=== PATIENT | male | born 1960 | race Caucasian/White ===

== ENCOUNTER → 2019-09-16 | Outpatient (CLI) | payer BC ==
[~2019-09-16] MED LIST: BUPIVACAINE MPF 0.5% 10 ML VIAL for KCIC. IJ ONE; IOHEXOL 300 MG/ML 50 ML VIAL. INT ART ONE; LIDOCAINE 1% Multi-Dose 20 ML VIAL. ID ONE; methylPREDNISolone ACETATE 40 MG/ML VIAL. INT ART ONE
--- NOTE | 2019-09-16 13:13 | KCIC ---
PROCEDURE Therapeutic right hip injection using fluoroscopic guidance. HISTORY Hip pain. TECHNIQUE The procedure was explained to the patient as were potential risks, including infection, bleeding or allergic reaction. All questions were answered. Informed written and verbal consent was obtained. The hip was prepped and draped in the usual sterile manner. Following administration of local anesthetic, a 22-gauge spinal needle was advanced into the hip joint without difficulty, with care taken to avoid the vascular structures. Stylet was removed and following negative aspiration, a mixture of 4 cc Omnipaque-300, 2 cc (80 mg) Depo-Medrol, 4 cc bupivacaine and 4 cc 1% lidocaine were injected without difficulty. Fluoroscopy demonstrates uniform and satisfactory distribution of the injection through the hip. The needle was removed. There was good hemostasis at the injection site. The patient left in stable condition without immediate complication. Patient was advised as to potential postprocedural complications and advised to contact their physician in such event. A single spot image was obtained. FLUOROSCOPY TIME: 35 seconds Electronically signed by: Herber Lloyd MD (09/16/2019 1:10 PM) [facility] [place]
== END | disposition home or self-care (01) ==
LOC: KCIC 10:09
PROVIDERS: ATTEND Orthopaedic Surgery Sports Medicine
DX: M25.551 Pain in right hip (principal); G89.29 Other chronic pain
CPT/HCPCS: 20610; 77002; J1030; Q9967

== ENCOUNTER → 2020-07-13 | Outpatient (CLI) | payer MEDICAID ==
--- NOTE | 2020-07-13 16:16 | RAD ---
VENOUS LOWER EXTREMITY RIGHT History: Reason: Localized swelling of right lower extremity / Spl. Instructions: / History: Comparison: None. Discussion: Multiple longitudinal and transverse high resolution real-time images of the venous system of right lower extremity were obtained with color and Doppler sampling. The common femoral, superficial femoral, popliteal and proximal calf veins are all patent and demonstrate normal flow and compressibility. Normal respiratory phasicity and augmentation is present. Impression: 1. No evidence of deep vein thrombosis. Electronically signed by: Herminio Reynolds DO (07/13/2020 4:14 PM) [id number]
== END ==
LOC: US 15:14
PROVIDERS: ATTEND Nurse Practitioner Family
DX: R22.41 Localized swelling, mass and lump, right lower limb (principal)
CPT/HCPCS: 93971

== ENCOUNTER → 2021-03-04 | Outpatient (CLI) | payer MEDICAID ==
--- NOTE | 2021-03-04 15:58 | RAD ---
Study: XR FOOT_RIGHT 3 VIEWS Indication: Closed nondisplaced right toe fracture. Comparison: None. Findings: Subacute fracture of the fourth proximal phalanx with callus formation. Note is made that this phalan x is obscured on the lateral view by overlapping bones hindering assessment of alignment. Chronic cor tical thickening along the third more so than second and fourth metatarsal shafts. Mild degenerative spurring at the dorsum of the TMT joints. Small plantar calcaneal spur. Bipartite m edial hallux sesamoid. Mild great toe MTP joint arthrosis. Soft tissue swelling at the dorsum of the forefoot. Vascular calcifications. Impression: Subacute fracture of the fourth proximal phalanx with surrounding callus. Chronic observations as abo ve. Electronically signed by: INDAI ALLEN MD (03/04/2021 3:55 PM) [facility]
== END ==
LOC: RAD 15:05
PROVIDERS: ATTEND Family Medicine
DX: S92.911A Unspecified fracture of right toe(s), initial encounter for closed fracture (principal); L84 Corns and callosities; X58.XXXA Exposure to other specified factors, initial encounter; Y93.89 Activity, other specified; Y92.89 Other specified places as the place of occurrence of the external cause; Y99.8 Other external cause status
CPT/HCPCS: 73630

== ENCOUNTER 2021-11-23 13:51 | Emergency (ER) | payer OTHER, MEDICAID ==
[~2021-11-23] VITALS: Ht 188 cm; Wt 185.3 kg
[2021-11-23 14:58] LABS: BASO # 0.1 x10^3/uL (0.0-0.2); BASO % 1 % (0-3); EOS # 0.2 x10^3/uL (0.0-0.7); EOS % 3 % (0-3); HEMOGLOBIN 12.6 g/dL (13.0-17.5); LYMPH % 16 % (24-48); MEAN CORPUSCULAR HEMOGLOBIN 29 pg (25-35); MEAN CORPUSCULAR HGB CONC 33 g/dL (31-37); MEAN CORPUSCULAR VOLUME 89 fL (79-100); MONO # 0.4 x10^3/uL (0.0-1.1); MONO % 6 % (0-9); NEUT # 4.7 x10^3/uL (1.8-7.7); NEUT % 74 % (31-73); PLATELET COUNT 251 x10^3/uL (140-400); RED BLOOD COUNT 4.29 x10^6/uL (4.30-5.70); RED CELL DISTRIBUTION WIDTH 15.2 % (11.5-14.5); WHITE BLOOD COUNT 6.4 x10^3/uL (4.0-11.0)
[2021-11-23 15:10] LABS: CALCIUM 7.9 mg/dL (8.5-10.1); CREATININE 1.5 mg/dL (0.7-1.3); GFR 47.9; POTASSIUM 4.5 mmol/L (3.5-5.1)
[2021-11-23 15:16] LABS: ALBUMIN 3.3 g/dL (3.4-5.0); ALBUMIN/GLOBULIN RATIO 0.8 (1.0-1.7); TOTAL BILIRUBIN 0.2 mg/dL (0.2-1.0); TOTAL PROTEIN 7.5 g/dL (6.4-8.2)
--- NOTE | 2021-11-23 15:49 | RAD ---
Bilateral lower extremity venous Doppler ultrasound History: Reason: BLE swelling wounds Comparison: None. Procedure: Color flow Doppler, Doppler spectral analysis, and 2D images are obtained with and without compression in the area of the common femoral vein, superficial femoral vein - femoral vein junction , main femoral vein (superficial femoral vein) and popliteal vein. Veins of the proximal calf are als o imaged. Findings: Study is technically difficult due to patient body habitus. There is normal color flow, augmentation, and compressibility of all visualized vein segments. No misty dence of deep venous thrombus is present. Posterior tibial and peroneal veins can only be evaluated w ith color Doppler, but are patent. IMPRESSION: No evidence of right or left lower extremity deep venous thrombosis. Electronically signed by: Shaquille Jauregui MD (11/23/2021 3:46 PM) [facility]
--- NOTE | 2021-11-23 17:21 | PHYS DOC ---
Past Medical History Past Medical History: Diabetes-Type II Past Surgical History: No Surgical History Smoking Status: Never Smoker Alcohol Use: None General Adult EDM: Chief Complaint: LOWER EXT PAIN HPI: HPI: Patient is a 61 year old male with history of diabetes type 2, chronic wounds to bilateral lower extremities who presents the ED today complaining of wounds to bilateral lower extremities that he noted last week. Patient states he was seen by the PCP on Monday and was started on cephalexin and Bactrim. He states he has an appointment with the wound clinic on Monday next week, he follows up with the wound clinic for chronic wounds Review of Systems: Review of Systems: Constitutional: Denies fever or chills. [] Eyes: Denies change in visual acuity. [] HENT: Denies nasal congestion or sore throat. [] Respiratory: Denies cough or shortness of breath. [] Cardiovascular: Denies chest pain or edema. [] GI: Denies abdominal pain, nausea, vomiting, bloody stools or diarrhea. [] : Denies dysuria. [] Musculoskeletal: Denies back pain or joint pain. [] Integument: Reports lower extremity wounds Neurologic: Denies headache, focal weakness or sensory changes. [] Psychiatric: Denies depression or anxiety. [] Heart Score: C/O Chest Pain: N/A Risk Factors: Risk Factors: DM, Current or recent (<one month) smoker, HTN, HLP, family history of CAD, obesity. Risk Scores: Score 0 - 3: 2.5% MACE over next 6 weeks - Discharge Home Score 4 - 6: 20.3% MACE over next 6 weeks - Admit for Clinical Observation Score 7 - 10: 72.7% MACE over next 6 weeks - Early Invasive Strategies Allergies: Allergies: Allergies Coded Allergies Type Severity Reaction Last Updated Verified Penicillins Allergy Unknown 11/23/21 Yes Physical Exam: PE: Constitutional: Well developed, well nourished, no acute distress, non-toxic appearance. [] HENT: Normocephalic, atraumatic, bilateral external ears normal, oropharynx trudy st, no oral exudates, nose normal. [] Eyes: PERRLA, EOMI, conjunctiva normal, no discharge. [] Neck: Normal range of motion, no tenderness, supple, no stridor. [] Cardiovascular:Heart rate regular rhythm, no murmur [] Lungs & Thorax: Bilateral breath sounds clear to auscultation [] Abdomen: Bowel sounds normal, soft, no tenderness, no masses, no pulsatile masses. [] Skin: Obese patient, bilateral lower extremities appear to have chronic edema with venous insufficiency, there is cellulitis throughout the lower extremities the patient states this is chronic. Bilateral lower extremities appear to have had weeping areas of opened up to the wound, the posterior side of the left lower extremity wound is 8 x 8 cm with clear drainage, the posterior side of the left lower extremity with 2 wounds one 2 x 3 days on 1 x 4 wound with clear drainage. There is no warmth over the wounds. +2 bilateral pedal pulses. Cap refill less than 2 seconds bilateral toes. Back: No tenderness, no CVA tenderness. [] Extremities: No tenderness, no cyanosis, no clubbing, ROM intact, no edema. [] Neurologic: Alert and oriented X 3, normal motor function, normal sensory function, no focal deficits noted. [] Psychologic: Affect normal, judgement normal, mood normal. [] Current Patient Data: Labs: Laboratory Tests Test 11/23/21 14:45 White Blood Count 6.4 x10^3/uL (4.0-11.0) Red Blood Count 4.29 x10^6/uL (4.30-5.70) L Hemoglobin 12.6 g/dL (13.0-17.5) L Hematocrit 38.0 % (39.0-53.0) L Mean Corpuscular Volume 89 fL (79-100) Mean Corpuscular Hemoglobin 29 pg (25-35) Mean Corpuscular Hemoglobin Concent 33 g/dL (31-37) Red Cell Distribution Width 15.2 % (11.5-14.5) H Platelet Count 251 x10^3/uL (140-400) Neutrophils (%) (Auto) 74 % (31-73) H Lymphocytes (%) (Auto) 16 % (24-48) L Monocytes (%) (Auto) 6 % (0-9) Eosinophils (%) (Auto) 3 % (0-3) Basophils (%) (Auto) 1 % (0-3) Neutrophils # (Auto) 4.7 x10^3/uL (1.8-7.7) Lymphocytes # (Auto) 1.0 x10^3/uL (1.0-4.8) Monocytes # (Auto) 0.4 x10^3/uL (0.0-1.1) Eosinophils # (Auto) 0.2 x10^3/uL (0.0-0.7) Basophils # (Auto) 0.1 x10^3/uL (0.0-0.2) Sodium Level 133 mmol/L (136-145) L Potassium Level 4.5 mmol/L (3.5-5.1) Chloride Level 101 mmol/L (98-107) Carbon Dioxide Level 28 mmol/L (21-32) Anion Gap 4 (6-14) L Blood Urea Nitrogen 25 mg/dL (8-26) Creatinine 1.5 mg/dL (0.7-1.3) H Estimated GFR (Cockcroft-Gault) 47.9 BUN/Creatinine Ratio 17 (6-20) Glucose Level 288 mg/dL (70-99) H Lactic Acid Level 2.2 mmol/L (0.4-2.0) H Calcium Level 7.9 mg/dL (8.5-10.1) L Total Bilirubin 0.2 mg/dL (0.2-1.0) Aspartate Amino Transferase (AST) 19 U/L (15-37) Alanine Aminotransferase (ALT) 22 U/L (16-63) Alkaline Phosphatase 105 U/L (46-116) Total Protein 7.5 g/dL (6.4-8.2) Albumin 3.3 g/dL (3.4-5.0) L Albumin/Globulin Ratio 0.8 (1.0-1.7) L Procalcitonin < 0.10 ng/mL (0.00-0.10) Laboratory Tests 11/23/21 14:45 Laboratory Tests 11/23/21 14:45 Vital Signs: Vital Signs Date Time Temp Pulse Resp B/P (MAP) Pulse Ox O2 Delivery O2 Flow Rate FiO2 11/23/21 15:46 80 154/85 (108) 97 11/23/21 14:15 98.6 24 98.6 EKG: EKG: [] Radiology/Procedures: Radiology/Procedures: []PROCEDURE: VENOUS LOWER EXT BILATERAL Bilateral lower extremity venous Doppler ultrasound History: Reason: BLE swelling wounds Comparison: None. Procedure: Color flow Doppler, Doppler spectral analysis, and 2D images are obtained with and without compression in the area of the common femoral vein, superficial femoral vein - femoral vein junction, main femoral vein (superficial femoral vein) and popliteal vein. Veins of the proximal calf are also imaged. Findings: Study is technically difficult due to patient body habitus. There is normal color flow, augmentation, and compressibility of all visualized vein segments. No evidence of deep venous thrombus is present. Posterior tibial and peroneal veins can only be evaluated with color Doppler, but are patent. IMPRESSION: No evidence of right or left lower extremity deep venous thrombosis. Electronically signed by: Shaquille Patiño MD (11/23/2021 3:46 PM) [facility] DICTATED and SIGNED BY: SHAQUILLE PATIÑO MD DATE: 11/23/21 [id number] 0 Course & Med Decision Making: Course & Med Decision Making Pertinent Labs and Imaging studies reviewed. (See chart for details) This a 61-year-old male patient presented to the ED today complaining of wounds to bilateral lower extremity. Patient has diabetes and has chronic wounds to t he lower extremity though he states the ones he has today and new since Monday. He was seen by the PCP Monday and was started on cephalexin and Bactrim. He also has cellulitis of the lower extremity which he states is chronic. He presents the ED today to be evaluated but states he does not want to be admitted Venous Dopplers of bilateral lower extremities are negative for any acute findings. CBC with a normal WBC, hemoglobin 12.8 with hematocrit of 38.0. Lactic 2.2, CMP with creatinine of 1.5, BUN is 47.9. Glucose 288. Anion gap is normal Patient again refused admission. Was discharged to home. He already has Bactrim and cephalexin and follow-up with the wound clinic on Monday next week as well as PCP Imani Disclaimer: Imani Disclaimer: This electronic medical record was generated, in whole or in part, using a voice recognition dictation system. Departure Departure Impression: Primary Impression: Cellulitis of lower extremity Qualified Codes: L03.119 - Cellulitis of unspecified part of limb Additional Impressions: Wounds, multiple open, lower extremity Qualified Codes: S81.809A - Unspecified open wound, unspecified lower leg, initial encounter Hyperglycemia Disposition: HOME / SELF CARE / HOMELESS Condition: STABLE Referrals: BELGICA ALMONTE APRN (PCP) Follow-up with your doctor in wound clinic next week Patient Instructions: Cellulitis, [id number], Hyperglycemia Additional Instructions: You were evaluated in the emergency room for wounds to her lower extremity, dominique lulitis and hyperglycemia. Please continue taking your antibiotics until completed. Follow-up with the wound clinic and primary care doctor next week. Make sure you are taking your diabetes medicine BESS CANNON APRN Nov 23, 2021 17:21
[2021-11-23 17:25] VITALS: BP 146/78
== END 2021-11-23 17:34 | disposition home or self-care (01) ==
LOC: ER 13:51
DX: S81.809A Unspecified open wound, unspecified lower leg, initial encounter (principal); L03.116 Cellulitis of left lower limb; L03.115 Cellulitis of right lower limb; E11.65 Type 2 diabetes mellitus with hyperglycemia; Z88.0 Allergy status to penicillin; X58.XXXA Exposure to other specified factors, initial encounter; Y93.89 Activity, other specified; Y92.89 Other specified places as the place of occurrence of the external cause; Y99.8 Other external cause status
CPT/HCPCS: 36415; 80053; 83605; 84145; 85025; 87040; 93970; 99284-25

== ENCOUNTER → 2022-02-17 | Outpatient (CLI) | payer OTHER, MEDICAID ==
--- NOTE | 2022-02-17 10:26 | RAD ---
Arterial Brachial Index: Indication: Nonhealing ulcers bilateral. Comparison: None. Procedure: Arterial pressures are measured in the arms and ankles. Findings: . Right ankle: 179 mm Hg. Right arm: 138 mm Hg. Left ankle: 177 mm Hg. Left arm: 141 mm Hg. Right leg KRISTINA: 1.29. Left leg KRISTINA: 1.26. Impression: Normal KRISTINA. Result Interpretation Recommendation >1.4 Advanced Wall Calcification Vascular Specialist Assessment 1.0 - 1.4 Normal None 0.9 - 1.0 Acceptable None 0.8 - 0.9 Mild Arterial Disease Risk Factor Review and Treatment 0.5 - 0.8 Moderate Arterial Disease Vascular Specialist Assessment < 0.5 Severe Arterial Disease Vascular Specialist Assessment Electronically signed by: Geremias Ahuja MD (02/17/2022 10:23 AM) [id number]
== END ==
LOC: US 08:03
PROVIDERS: ATTEND Emergency Medicine Undersea and Hyperbaric Medicine
DX: L97.822 Non-pressure chronic ulcer of other part of left lower leg with fat layer exposed (principal); L97.811 Non-pressure chronic ulcer of other part of right lower leg limited to breakdown of skin
CPT/HCPCS: 93922; 93925